=== PATIENT | male | born 1985 | race Caucasian/White ===

== ENCOUNTER 2017-11-30 10:42 | Emergency (ER) | payer SELFPAY ==
[~2017-11-30] VITALS: Ht 182.9 cm; Wt 91.0 kg
[2017-11-30 10:46] VITALS: BP 136/84
== END 2017-11-30 14:57 | disposition left against medical advice (07) ==
LOC: ER 10:42
DX: Z53.21 Procedure and treatment not carried out due to patient leaving prior to being seen by health care provider (principal)